=== PATIENT | female | born 1945 | race Caucasian/White ===

== ENCOUNTER 2017-08-10 09:31 | Inpatient (IN) | payer OTHER, MEDICARE ==
[~2017-08-10 09:31] MED LIST: ROPIVACAINE 0.2% 80 MG, EPINEPHrine 0.2 MG, KETOROLAC TROMETHAMINE 30 MG in SYRINGE 0 ML IU ONE; TRANEXAMIC ACID 3,000 MG in NS (SYRINGE) 50 ML IRR ONE; TRANEXAMIC ACID 3,000 MG/50 ML BAG IRR ONE
[2017-08-10] MEDS ORDERED: ceFAZolin 2 GM/SWFI 2 GM/20 ML SYR IVP ONE (10:39)
[2017-08-10] MEDS ORDERED: ACETAMINOPHEN 325 MG TAB PO ONE (10:39)
[2017-08-10] MEDS ORDERED: FAMOTIDINE 20 MG TAB PO ONE (10:39)
[2017-08-10] MEDS ORDERED: DEXAMETHASONE 4 MG/ML VIAL IVP ONE (10:39)
[2017-08-10] MEDS ORDERED: LR 1,000 ML IV ONE (10:40)
[2017-08-10] MEDS ORDERED: LIDOCAINE 1% 2 ML INJ ID PRN (10:40)
[2017-08-10] MEDS ORDERED: MIDAZOLAM 2 MG/2 ML VIAL IVP ONE (10:49)
--- NOTE | 2017-08-10 11:13 | PDHPUP ---
History & Physical Update H&P update statement: This history and physical update is based on an assessment of the patient which was completed after admission or registration (within 24 hours), but prior to the surgery/procedure. H&P update: H&P reviewed & patient examined, no change in patient's condition since H&P completed
[2017-08-10] MEDS ORDERED: PROPOFOL 200 MG/20 ML VIAL ONE ×3 (12:04→12:38)
[2017-08-10] MEDS ORDERED: fentaNYL 100 MCG/2 ML INJ ONE ×4 (12:29→14:07)
[2017-08-10] MEDS ORDERED: PROMETHAZINE HCL 25 MG/ML INJ IVP PRN ×2 (12:51→13:38)
[2017-08-10] MEDS ORDERED: HYDROmorphONE/DILAUDID 1 MG/ML INJ IVP PRN (12:51)
[2017-08-10] MEDS ORDERED: ALBUTEROL 3 ML DEYVIAL IH PRN (12:51)
[2017-08-10] MEDS ORDERED: MEPERIDINE 25 MG/ML SYR IVP PRN (12:51)
[2017-08-10] MEDS ORDERED: NALOXONE HCL 0.4 MG/ML INJ IVP PRN (12:51)
[2017-08-10] MEDS ORDERED: METOCLOPRAMIDE 10 MG/2 ML VIAL IVP PRN ×2 (12:51→13:38)
[2017-08-10] MEDS ORDERED: HYDROCODONE/APAP 5/325 TAB PO PRN (12:51)
[2017-08-10] MEDS ORDERED: ONDANSETRON 4 MG/2 ML VIAL IVP PRN ×2 (12:51→13:38)
[2017-08-10] MEDS ORDERED: LABETALOL HCL 5 MG/ML 20 ML MDV IVP PRN (12:51)
[2017-08-10] MEDS ORDERED: LR 500 ML IV PRN (12:51)
[2017-08-10] MEDS ORDERED: PROPOFOL/EMULSION 500 MG/50 ML BOTTLE IV ONE (12:55)
--- NOTE | 2017-08-10 13:05 | PDANEPAE ---
ANE History of Present Illness 71 year old woman for left anterior hip arthroplasty. ANE Past Medical History - Cardiovascular History Hx Hypertension: No Hx Arrhythmias: No Hx Chest Pain: No Hx Coronary Artery / Peripheral Vascular Disease: No Hx CHF / Valvular Disease: No Hx Palpitations: No - Pulmonary History Hx COPD: No Hx Asthma/Reactive Airway Disease: No Hx Recent Upper Respiratory Infection: No Hx Oxygen in Use at Home: No Hx Sleep Apnea: Yes Sleep Apnea Screening Result - Last Documented: Positive Pulmonary History Comment: ALY uses oral appliance - Neurologic History Hx Cerebrovascular Accident: No Hx Seizures: No Hx Dementia: No - Endocrine History Hx Diabetes: No Endocrine History Comment: Hypothyroid - Renal History Hx Renal Disorders: No - Liver History Hx Hepatic Disorders: No - Neurological & Psychiatric Hx Hx Neurological and Psychiatric Disorders: Yes Neurological / Psychiatric History Comment: Bi-polar - Cancer History Hx Cancer: No - Congenital Disorder History Hx Congenital Disorders: No - GI History Hx Gastrointestinal Disorders: No - Chronic Pain History Chronic Pain: No - Surgical History Prior Surgeries: left tka ANE Review of Systems Review of systems is: negative Review of Systems: - Exercise capacity METS (RN): 4 METS ANE Patient History - Allergies Allergies/Adverse Reactions: No Known Allergies Allergy (Verified 07/07/17 16:25) - Home Medications Home Medications: Cholecalciferol Vit D3 [Vitamin D3 2000 units tab (OTC)] 5,000 units PO DAILY [Last Taken 07/27/17] Herbals/Supplements -Info Only 1 ea PO DAILY 07/07/17 [Last Taken 07/27/17] Ibuprofen [Motrin (*)] 200 mg PO HS PRN 07/07/17 [Last Taken 07/27/17] Levothyroxine [Synthroid 137 mcg (*)] 137 mcg PO DAILY06 07/07/17 [Last Taken 07:00] [place] Carbonate [[place] Carbonate Tab 300 mg (*)] 300 mg PO BID 07/07/17 [ Last Taken 08/10/17 07:00] Naproxen Sodium [Aleve 220 MG (*)] 220 mg PO DAILY PRN 07/07/17 [Last Taken ] [place]-3 Fatty Acids [Fish Oil 1000 mg (*)] 1,000 mg PO DAILY 07/07/17 [Last Taken 07/27/17] Sodium Chloride [[place]] 1 spray EACHNARE PRN PRN 07/07/17 [Last Taken 07/27/17] Propranolol HCl [Inderal 20mg (*)] 20 mg PO DAILY 07/08/17 [Last Taken 07/04/17] - NPO status NPO Since - Liquids (Date): 08/09/17 NPO Since - Liquids (Time): 21:00 NPO Since - Solids (Date): 08/09/17 NPO Since - Solids (Time): 21:00 - Smoking Hx Smoking Status: Former smoker - Family Anes Hx Family Hx Anesthesia Complications: none ANE Labs/Vital Signs - Vital Signs Blood Pressure: 108/71 Heart Rate: 70 Respiratory Rate: 16 O2 Sat (%): 97 Height: 162.56 cm Weight: 53.07 kg ANE Physical Exam - Airway Neck exam: FROM Mallampati Score: Class 2 Mouth exam: normal dental/mouth exam - Pulmonary Pulmonary: no respiratory distress - Cardiovascular Cardiovascular: regular rate and rhythym ANE Anesthesia Plan Anesthesia Plan: spinal
[2017-08-10] MEDS ORDERED: MAGNESIUM HYDROXIDE 30 ML UDCUP PO PRN (13:38)
[2017-08-10] MEDS ORDERED: BISACODYL 10 MG SUPP PR PRN (13:38)
[2017-08-10] MEDS ORDERED: DIPHENOXYLATE/ATROPINE LOMOTIL 1 TAB PO PRN (13:38)
[2017-08-10] MEDS ORDERED: TEMAZEPAM 15 MG CAP PO PRN (13:38)
[2017-08-10] MEDS ORDERED: LACTULOSE 20 GM/30 ML UDCUP PO PRN (13:38)
[2017-08-10] MEDS ORDERED: ONDANSETRON DISINTEGRATING 4 MG TAB PO PRN (13:38)
[2017-08-10] MEDS ORDERED: POLYETHYLENE GLYCOL 3350 17 GM PKT PO PRN (13:38)
[2017-08-10] MEDS ORDERED: PROMETHAZINE HCL 25 MG SUPPR PR PRN (13:38)
[2017-08-10] MEDS ORDERED: CYCLOBENZAPRINE 10 MG TAB PO PRN (13:38)
[2017-08-10] MEDS ORDERED: diphenhydrAMINE 25 MG CAP PO PRN (13:38)
--- NOTE | 2017-08-10 13:38 | POSTOPPROG ---
Post Op Note Date of Operation: 08/10/17 Surgeon: Shamir Pope Suspender Cutter: precious pope Anesthesiologist: dr. jarvis Anesthesia: Spinal Pre-op Diagnosis: left hip OA Post-op Diagnosis: same Indication: left hip pain due to OA that failed conservative measuers Procedure: L MARIO ant approach Findings: severe hip OA Inf/Abcess present in the surg proc area at time of surgery?: No EBL: 100-500
[2017-08-10] MEDS: fentaNYL 100 MCG/2 ML INJ IVP PRN ×4 (13:44→14:25)
[2017-08-10] MEDS ORDERED: LR 1,000 ML IV SCH (14:00)
[2017-08-10] MEDS ORDERED: HYDROmorphONE/DILAUDID 1 MG/ML INJ ONE (14:26)
--- NOTE | 2017-08-10 14:35 | POSTANESTH ---
Post Anesthetic Evaluation Cardiovascular Status: Normal, Stable Respiratory Status: Normal, Stable Level of Consciousness/Mental Status: Can Participate in Eval Pain Control: Adequate, Prn Tx Ordered Complications Possibly Related to Anesthesia: None Noted
[2017-08-10] MEDS: oxyCODONE IR 5 MG TAB PO PRN (15:14)
--- NOTE | 2017-08-10 17:58 | GOP ---
[f rep st] OPERATIVE REPORT DATE OF OPERATION: 08/10/2017 SURGEON: Krish Cota MD HOSPICE CARE TRANSITIONS COORDINATOR: AURE Pitts. ANESTHESIA: Spinal. PREOPERATIVE DIAGNOSIS: Left hip osteoarthritis. POSTOPERATIVE DIAGNOSIS: Left hip osteoarthritis. PROCEDURE PERFORMED: Left total hip arthroplasty with x-ray. FINDINGS: ESTIMATED BLOOD LOSS: 200 mL. INDICATIONS: The patient has progressively worsening arthritis of the hip which has failed medical m anagement. The patient understands the treatment options including continued non-operative care and has selected surgical intervention. The patient has decided to undergo total hip arthroplasty via th e direct anterior approach, understanding the risks of the procedure including, but not limited to, n eurovascular injury, infection, persistent pain, component wear and loosening, deep venous thrombosis , pulmonary embolism, limb length inequality, hip instability (including dislocation), and intra-oper ative fractures. DESCRIPTION OF PROCEDURE: After proper identification of the patient including verification and iain ing the surgical site, the patient was brought to the operating room and placed in the supine positio n. All bony prominences were well padded. Anesthesia was induced without complication and intraveno us prophylactic antibiotics were administered prior to skin incision. The operative leg was placed in the Trumpf Arch table extension and the well leg in a [place] leg ho lder. The patient was prepped and draped in the usual sterile fashion. The C-arm was draped for int ra-operative fluoroscopy to check acetabular position, femoral component position including leg lengt h and femoral offset. Attention was then drawn to surgical exposure of the hip. An incision was made with a #10 Bard Tiago r blade starting 3 cm lateral and 3 cm distal to the anterior superior iliac spine measuring 8-10 cm and coursing distally toward the greater trochanter. The skin and subcutaneous tissues were divided sharply down to the fascia aubrey. The fascia aubrey was incised in line with the skin incision exposing the underlying tensor fascia aubrey muscle. The muscle was bluntly elevated from the fascia and the f irst extracapsular Cobra retractor was placed laterally at the junction of the superior femoral neck and greater trochanter. The lateral femoral circumflex vessels were identified, cauterized, and divi ded with the Aquamantys bipolar cautery. The deep investing fascia of the TFL was divided to allow p tsefany mobilization of the muscle preventing damage during the retraction. The reflected head of the rectus femoris muscle was elevated off the anterior hip capsule and a medial Cobra retractor was plac ed just proximal to the lesser trochanter. The anterior capsulotomy was made sharply from the superolateral acetabulum to the saddle junction of the superior femoral neck and greater trochanter, then coursing inferomedial towards the lesser troc hanter. The retractors were then placed in the intracapsular position for femoral neck osteotomy. C orresponding to pre-operative templating, the osteotomy was made with the oscillating saw carefully p rotecting the greater trochanter and soft tissues. The femoral head was removed from the acetabulum with a corkscrew and confirmed to be severely arthritic with exposed bone, deformity and osteophytes. Similar findings were confirmed in the acetabulum. The Arch table extension was then placed in 40 degrees external rotation. Attention was then drawn to the acetabular preparation. After placement of the anterior and posterio r Cobra retractors outside the labrum and intracapsular, the circumferential labrum was removed sharp ly. The foveal contents were then removed and hemostasis obtained with cautery. The first reamer selected was sized using the removed femoral head. Reaming began with medialization and then commenced in 2 mm increments at 45 degrees of abduction and 15 degrees of anteversion using fluoroscopic navigation. Reaming ceased 1 mm less than the definitive acetabular component and wyatt esponded to the pre-operative templating. The final acetabular component was inserted using fluorosc opy to achieve proper orientation yielding excellent purchase and stability in the acetabulum. The f inal acetabular liner was then placed and its seating confirmed. Attention was then turned to the femur. The Arch table extension was placed in extension and adducti on, delivering the osteotomized femoral neck into the wound. A 2-pronged femoral elevator was placed at the calcar and another at the tip of the greater trochanter. The posterolateral capsule was rele ased with cautery allowing mobilization of the femur lateral and anterior for preparation. The exter nal rotators were visualized and preserved. A curette and rongeur were used to open the starting poi nt for broaching. Serial broaching started with the #0 broach and ended with the broach that exhibit ed excellent fit in the proximal femur. A change in pitch during mallet strikes was accompanied by t he inability to advance the broach any further. The trial reduction was performed and fluoroscopic n avigation was utilized to check limb length. Adjustments were made to equalize limb length according ly. After the final trials were accepted they were removed and the wound was copiously lavaged. The femo ral component was seated to the same depth as the final broach and the femoral head was impacted onto the clean trunnion. The hip was then reduced for the final time and once more fluoroscopy was used to check that limb length equality was achieved. The wound was irrigated and closed in layers, the fascia aubrey with 2-0 Quill, the subcutaneous tissue with 2-0 Quill, and the skin with Dermabond. Sterile dressings were applied. Final sharps and spon ge counts were accurate. The patient was then transferred to a hospital bed and brought to the [facility] room in stable condition. IMPLANTS: Accolade II, size 4 at 132. Acetabular component is Trident II 52 mm. The liner is a Tri dent X3, 36 mm. The head is a Biolox Delta 36 mm +0. /[id number]/MODL
[2017-08-10] MEDS: SENNOSIDES/DOCUSATE SODIUM TAB PO SCH (20:18)
[2017-08-10] MEDS: ACETAMINOPHEN 325 MG TAB PO SCH ×2 (20:19→23:33)
[2017-08-10] MEDS: LITHIUM CARBONATE 300 MG TAB PO SCH (20:20)
[2017-08-10] MEDS: ceFAZolin 2 GM/DEXTROSE 100 ML IV SCH (20:20)
[2017-08-10] MEDS: ASPIRIN 81 MG CHEWABLE TAB PO SCH (20:20)
[2017-08-10] MEDS: FAMOTIDINE 20 MG TAB PO SCH (20:20)
[2017-08-11] MEDS: oxyCODONE IR 5 MG TAB PO PRN ×2 (02:35→09:58)
[2017-08-11] MEDS: ceFAZolin 2 GM/DEXTROSE 100 ML IV SCH (02:38)
[2017-08-11] MEDS: ACETAMINOPHEN 325 MG TAB PO SCH (05:32)
[2017-08-11] MEDS ORDERED: LEVOTHYROXINE 137 MCG TAB PO SCH (06:00)
[2017-08-11 08:13] VITALS: BP 94/58; PULSE 76; RESP 14; TEMP 98.3; O2SAT 93
[2017-08-11] MEDS ORDERED: PROPRANOLOL HCL 20 MG TAB PO SCH (09:00)
[2017-08-11] MEDS: FAMOTIDINE 20 MG TAB PO SCH (09:56)
[2017-08-11] MEDS: ASPIRIN 81 MG CHEWABLE TAB PO SCH (09:56)
[2017-08-11] MEDS: SENNOSIDES/DOCUSATE SODIUM TAB PO SCH (09:57)
[2017-08-11] MEDS: LITHIUM CARBONATE 300 MG TAB PO SCH (09:57)
--- NOTE | 2017-08-11 12:56 | SOAPPROG ---
SOAP Progress Note Assessment/Plan: Assessment: Patient is doing well POD 1 s/p MARIO Pain management: pain is well controlled on oral pain meds. VTE ppx: recommend aspirin 81 mg BID for 4 weeks, cont LEELEE and SCDs Anemia: level is expected initially postop. Asymptomatic. Continue to monitor D/c planning: d/c to home today pending release from PT Plan: 08/11/17 12:55 Subjective: Shelby is doing well today, denies SOB, chest pain and N/V Objective: Vital Signs Temp Pulse Resp BP Pulse Ox 36.8 C 76 14 94/58 L 93 08/11/17 08:00 08/11/17 08:00 08/11/17 08:00 08/11/17 08:00 08/11/17 08:00 Laboratory Results 08/11/17 05:15 08/10/17 08/11/17 08/12/17 05:59 05:59 05:59 Intake Total 3225 Output Total 1575 200 Balance 1650 -200 incision dressing is clean and dry, NVI, +pf/df ICD10 Worksheet Patient Problems: Problems Problem Status Onset Primary localized osteoarthritis of right hip Acute
== END 2017-08-11 11:57 | disposition home or self-care (01) | DRG 470 ==
LOC: F3E 09:37 → F3N 14:57
PROVIDERS: ADMIT Orthopaedic Surgery; ATTEND Orthopaedic Surgery
PROC: 0SRB04Z Replacement of Left Hip Joint with Ceramic on Polyethylene Synthetic Substitute, Open Approach (ICD-10-PCS; principal; 2017-08-10 12:15)
DX: M16.12 Unilateral primary osteoarthritis, left hip (principal); F31.81 Bipolar II disorder; M85.80 Other specified disorders of bone density and structure, unspecified site; G47.33 Obstructive sleep apnea (adult) (pediatric); G31.84 Mild cognitive impairment of uncertain or unknown etiology; E03.8 Other specified hypothyroidism; E06.3 Autoimmune thyroiditis; M54.2 Cervicalgia
CPT/HCPCS: 97116-GP; 97161-GP; 97165-GO; 97530-GP; 97535-GO; G8978-GP-CK; G8979-GP-CI; G8980-GP-CI; G8987-GO-CI; G8988-GO-CI; G8989-GO-CI; J0171; J0690; J1100; J1170; J1885; J2250; J2704; J2795; J3010